=== PATIENT | male | born 1950 | race Two or more races ===

== ENCOUNTER 2019-10-11 05:30 | Day surgery (SDC) | payer OTHER ==
[~2019-10-11 05:30] MED LIST: CASODEX50 MG PO; HUMULIN 70100 UNIT/1; LASIX40 MG PO; ZESTRIL5 MG PO
== END 2019-10-11 10:05 | disposition home or self-care (01) ==
LOC: CIR.AMB 05:30
DX: C20 Malignant neoplasm of rectum (principal)
CPT/HCPCS: 36561; C1751

== ENCOUNTER 2019-10-23 08:15 | Inpatient (IN) | payer OTHER ==
[~2019-10-23] VITALS: Ht 167.6 cm; Wt 99.8 kg
== END 2019-10-27 14:55 | disposition home or self-care (01) | DRG 331 ==
LOC: O/R 10-24 05:25 → SURH 10-24 05:25 → SURG 10-24 07:00 → SURH 10-24 12:49
PROVIDERS: ADMIT Colon & Rectal Surgery
PROC: 0D1B4Z4 Bypass Ileum to Cutaneous, Percutaneous Endoscopic Approach (ICD-10-PCS; 2019-10-24)
PROC: 07BC4ZX Excision of Pelvis Lymphatic, Percutaneous Endoscopic Approach, Diagnostic (ICD-10-PCS; 2019-10-24)
PROC: 0DBN4ZZ Excision of Sigmoid Colon, Percutaneous Endoscopic Approach (ICD-10-PCS; 2019-10-24)
PROC: 0DBP4ZZ Excision of Rectum, Percutaneous Endoscopic Approach (ICD-10-PCS; principal; 2019-10-24 07:00)
DX: C20 Malignant neoplasm of rectum (principal)

== ENCOUNTER 2020-01-15 16:21 | Inpatient (IN) | payer OTHER ==
[~2020-01-15] VITALS: Ht 167.6 cm; Wt 98.9 kg
== END 2020-02-02 12:56 | disposition home or self-care (01) | DRG 349 ==
LOC: SURG 01-31 07:54 → O/R 01-31 07:54 → SURH 01-31 09:00 → SURG 01-31 14:01
PROVIDERS: ADMIT Colon & Rectal Surgery; ATTEND Colon & Rectal Surgery
PROC: 0DBB4ZZ Excision of Ileum, Percutaneous Endoscopic Approach (ICD-10-PCS; principal; 2020-01-31 11:00)
DX: Z43.2 Encounter for attention to ileostomy (principal); Z85.048 Personal history of other malignant neoplasm of rectum, rectosigmoid junction, and anus; Z20.828 Contact with and (suspected) exposure to other viral communicable diseases

== ENCOUNTER 2020-01-22 07:10 | Outpatient (CLI) | payer OTHER | END 2020-01-22 07:20 | disposition home or self-care (01) | LOC: RX STUDY 07:10 | PROVIDERS: ATTEND Colon & Rectal Surgery | DX: C20 Malignant neoplasm of rectum (principal) ==

== ENCOUNTER 2020-11-29 06:10 | Day surgery (SDC) | payer OTHER | END 2020-11-29 12:30 | disposition home or self-care (01) | LOC: AMB-ENDOS 06:10 | PROVIDERS: ATTEND Colon & Rectal Surgery | DX: D12.9 Benign neoplasm of anus and anal canal (principal); Z20.822 Contact with and (suspected) exposure to COVID-19 ==